=== PATIENT | male | born 1955 | race Caucasian/White ===

== ENCOUNTER 2023-10-01 12:09 | Emergency (ER) | payer MEDICARE, OTHER, SELFPAY ==
[2023-10-01 12:09] VITALS: BP 126/83; PULSE 106; RESP 14; TEMP 36.3; O2SAT 96; BMI 28.7
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
--- NOTE | 2023-10-01 12:19 | CT_ITS ---
STUDY: CT CERVICAL SPINE WITHOUT CONTRAST REASON FOR EXAM: Male, 68 years old. Neck pain. Injury. RADIATION DOSAGE (If Supplied By Facility): CTDIvol = ( 26.24 ) mGy, DLP = ( 611.03 ) mGycm TECHNIQUE: High resolution transaxial imaging was performed without contrast material. Sagittal and coronal images were reconstructed. Individualized dose optimization techniques were used for this CT. COMPARISON: No relevant prior comparison study available FINDINGS: BONES: There is no fracture in the cervical spine. The dens is intact. The vertebral body heights are maintained. ALIGNMENT: There is no dislocation. There is straightening of the normal cervical lordosis which may be due to paraspinal muscle spasm or may be positional in nature. DISC SPACES: There are moderate degenerative changes. LUNG APICES: The visualized lung apices are clear. SOFT TISSUES: The visualized paraspinal soft tissues are within normal limits. CT/Spine Cervical without Contras IMPRESSION: No fracture or dislocation in the cervical spine. Straightening of the normal cervical lordosis which may be due to paraspinal muscle spasm or may be positional in nature. Moderate degenerative change. Electronically Signed: Rome Kenny MD at 13:46 EDT ,
--- NOTE | 2023-10-01 12:19 | CT_ITS ---
STUDY: CT BRAIN WITHOUT CONTRAST REASON FOR EXAM: Male, 68 years old. Injury. RADIATION DOSAGE (If Supplied By Facility): CTDIvol = ( 44.99 ) mGy, DLP = ( 779.24 ) mGycm TECHNIQUE: Transaxial CT imaging of the brain was performed without administration of intravenous contrast material. Individualized dose optimization techniques were used for this CT. COMPARISON: No relevant prior comparison study available FINDINGS: PARENCHYMA: There is no acute bleed or infarct. There are normal white matter tracts. VENTRICLES: There is no hydrocephalus. MASTOID AIR CELLS AND PARANASAL SINUSES: The visualized paranasal sinuses are clear. The mastoid air cells are clear. BONES: There is no skull fracture. SOFT TISSUES: The visualized soft tissues are within normal limits. CT/Brain/Head without Contrast IMPRESSION: No acute intracranial abnormality. Electronically Signed: Rome Kenny MD at 13:43 EDT ,
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
[2023-10-01] MEDS: Lidocaine 1% /Epi 1:100 (20ml) 20 ML Vial INFILT (12:47)
[2023-10-01] MEDS: Diphth,Pertuss(Acell),Tet Vac 0.5 ML Vial IM (12:47)
[2023-10-01] MEDS: Acetaminophen 500 MG Tablet 1000 MG PO (13:37)
== END 2023-10-01 14:02 | disposition home or self-care (01) ==
PROVIDERS: Emergency Provider Student in an Organized Health Care Education/Training Program; Visit Provider Student in an Organized Health Care Education/Training Program
DX: S01.81XA Laceration without foreign body of other part of head, initial encounter (principal); G20.A1 Parkinson's disease without dyskinesia, without mention of fluctuations; S20.219A Contusion of unspecified front wall of thorax, initial encounter; S06.0X0A Concussion without loss of consciousness, initial encounter; S00.83XA Contusion of other part of head, initial encounter; V18.4XXA Pedal cycle driver injured in noncollision transport accident in traffic accident, initial encounter; S00.81XA Abrasion of other part of head, initial encounter; I10 Essential (primary) hypertension; E78.5 Hyperlipidemia, unspecified; Z79.899 Other long term (current) drug therapy; Z23 Encounter for immunization
CPT/HCPCS: 12011; 70450; 71101; 72125; 90471; 90715; 99282